=== PATIENT | male | born 1940 | race Caucasian/White ===

== ENCOUNTER 2017-02-19 20:10 | Observation (INO) | payer MEDICARE, BC ==
[2017-02-19] MEDS ORDERED: ASPIRIN 81 MG CHEWABLE TABLET PO ONE (20:34)
[2017-02-19] MEDS ORDERED: NITROGLYCERIN 0.4MG SL TABLET #25 BTL SL PRN (20:34)
[2017-02-19] MEDS ORDERED: DILTIAZEM 25MG/5ML VIAL IV ONE (20:37)
--- NOTE | 2017-02-19 20:43 | Emergency Department Record ---
History of Present Illness - General Chief complaint: ENT Stated complaint: TIGHTNESS IN THE THROAT AREA Time Seen by Provider: 02/19/17 20:20 Source: Patient Mode of Arrival: Ambulatory Limitations: No limitations - History of Present Illness Initial comments: pt developed tightness in chest and neck earlier this evening which continued. Onset/Timin -: Hour(s) Location: Throat Severity: Moderate Severity scale (1-10): 5 Consistency: Constant Improves with: None Worsens with: None Associated Symptoms: Other - Related Data Home Medications Medication Instructions Recorded Confirmed Last Taken Amlodipine Besylate [Norvasc] 10 mg PO DAILY 02/19/17 02/19/17 Unknown Aspirin [Aspirin EC] 81 mg PO DAILY 02/19/17 02/19/17 Unknown Calcium Carbonate/Vitamin D3 1 each PO DAILY 02/19/17 02/19/17 Unknown [Caltrate 600 Plus D3 Tablet] Clonidine HCl 0.2 mg PO TID 02/19/17 02/19/17 Unknown Doxazosin Mesylate [Cardura] 4 mg PO BID 02/19/17 02/19/17 Unknown Fish Oil/Dha/Epa [Fish Oil 1,200 1 each PO BID 02/19/17 02/19/17 Unknown mg Fish Oil] Lovastatin 20 mg PO DAILY 02/19/17 02/19/17 Unknown Multivitamin/Iron/Folic Acid 1 tab PO DAILY 02/19/17 02/19/17 Unknown [Centrum] Ubidecarenone [Ultra Coq10] 75 mg PO DAILY 02/19/17 02/19/17 Unknown Vit C/Vit E AC/Lut/Copper/Zinc 2 tab PO DAILY 02/19/17 02/19/17 Unknown [PreserVision Lutein Softgel] Allergies Allergy/AdvReac Type Severity Reaction Status Date / Time No Known Drug Allergies Allergy Verified 02/19/17 20:27 Travel Screening - Travel/Exposure Within Last 30 Days Have you traveled within the last 30 days?: No Review of Systems Reviewed: No additional complaints except as noted below Constitutional: Reports: As per HPI. Denies: Chills, Fever, Malaise, Night sweats, Weakness, Weight change Eyes: Reports: As per HPI. Denies: Eye discharge, Eye pain, Photophobia, Vision change ENT: Reports: As per HPI. Denies: Congestion, Dental pain, Ear pain, Epistaxis , Hearing loss, Throat pain Respiratory: Reports: As per HPI. Denies: Cough, Dyspnea, Hemoptysis, Stridor, Wheezes Cardiovascular: Reports: As per HPI. Denies: Arrhythmia, Chest pain, Dyspnea on exertion, Edema, Murmurs, Orthopnea, Palpitations, Paroxysmal nocturnal dyspnea, Rheumatic Fever, Syncope Endocrine: Reports: As per HPI. Denies: Fatigue, Heat or cold intolerance, Polydipsia, Polyuria Gastrointestinal: Reports: As per HPI. Denies: Abdominal pain, Constipation, Diarrhea, Hematemesis, Hematochezia, Melena, Nausea, Vomiting Genitourinary: Reports: As per HPI. Denies: Dysuria, Frequency, Hematuria, Incontinence, Retention, Testicular pain, Testicular mass, Urgency Musculoskeletal: Reports: As per HPI. Denies: Arthralgia, Back pain, Gout, Joint swelling, Myalgia, Neck pain Skin: Reports: As per HPI. Denies: Bruising, Change in color, Change in hair/ nails, Lesions, Pruritus, Rash Neurological: Reports: As per HPI. Denies: Abnormal gait, Confusion, Headache, Numbness, Paresthesias, Seizure, Tingling, Tremors, Vertigo, Weakness Psychiatric: Reports: As per HPI. Denies: Anxiety, Auditory hallucinations, Depression, Homicidal thoughts, Suicidal thoughts, Visual hallucinations Hematological/Lymphatic: Reports: As per HPI. Denies: Anemia, Blood Clots, Easy bleeding, Easy bruising, Swollen glands Past Medical History - SOCIAL HISTORY Smoking Status: Never smoker Alcohol Use: None Drug Use: None - RESPIRATORY Hx Respiratory Disorders: No - CARDIOVASCULAR Hx Cardio Disorders: Yes Hx Hypertension: Yes - NEURO Hx Neuro Disorders: No - GI Hx GI Disorders: No - Hx Genitourinary Disorders: No - ENDOCRINE Hx Endocrine Disorders: No - MUSCULOSKELETAL Hx Musculoskeletal Disorders: No - PSYCH Hx Psych Problems: No - HEMATOLOGY/ONCOLOGY Hx Hematology/Oncology Disorders: No Family Medical History Any Significant Family History?: Yes Hx Heart Disease: Mother Hx HTN: Father Physical Exam - General General Appearance: Alert, Oriented x3, Cooperative, Mild distress - Head Head exam: Normal inspection - Eye Eye exam: Normal appearance, PERRL, EOMI Pupils: Normal accommodation - ENT ENT exam: Normal exam, Mucous membranes moist, Normal external ear exam, Normal orophraynx, TM's normal bilaterally Ear exam: Normal external inspection. negative: External canal tenderness Nasal Exam: Normal inspection. negative: Discharge, Sinus tenderness Mouth exam: Normal external inspection, Tongue normal Teeth exam: Normal inspection. negative: Dental caries Throat exam: Normal inspection. negative: Tonsillar erythema, Tonsillar exudate - Neck Neck exam: Normal inspection, Full ROM. negative: Tenderness - Respiratory Respiratory exam: Normal lung sounds bilaterally. negative: Respiratory distress - Cardiovascular Cardiovascular Exam: Normal heart sounds, Irregular rhythm, Tachycardia - GI/Abdominal GI/Abdominal exam: Soft, Normal bowel sounds. negative: Tenderness - Rectal Rectal exam: Deferred - exam: Deferred - Extremities Extremities exam: Normal inspection, Full ROM, Normal capillary refill. negative: Tenderness - Back Back exam: Reports: Normal inspection, Full ROM. Denies: Muscle spasm, Rash noted, Tenderness - Neurological Neurological exam: Alert, Normal gait, Oriented X3, Reflexes normal - Psychiatric Psychiatric exam: Normal affect, Normal mood - Skin Skin exam: Dry, Intact, Normal color, Warm Course Vital Signs 02/19/17 20:28 Temperature 97.8 F Pulse Rate 101 H Respiratory 18 Rate Blood Pressure 149/110 Pulse Ox 98 - Reevaluation(s) Reevaluation #1: 02/19/17 22:20 pt converted after 2 hours Medical Decision Making - Lab Data Result diagrams: 02/19/17 20:40 02/19/17 20:40 Disposition Disposition: Admit Clinical Impression: Paroxysmal atrial fibrillation, Chest tightness Disposition: Still a Patient at [facility] Decision to Admit: Admit from ER Decision to Admit Date: 02/19/17 Decision to Admit Time: 22:22 Forms: Patient Portal Access Quality - Quality Measures Quality Measures: N/A - Blood Pressure Screening Does Patient Have Any of the Following: Active Dx of HTN Blood Pressure Classification: Hypertensive Reading Systolic Measurement: 149 Diastolic Measurement: 110 Screening for High Blood Pressure: Patient Exclusion, Hx of HTN [G9744]
[2017-02-19 20:46] LABS: BASO % 0.6 % (0-6); EOS % 5.1 % (0-6); GRAN % 52.6 % (47-80); HEMATOCRIT 41.5 % (42.0-52.0); HEMOGLOBIN 14.7 gm/dl (14.0-18.0); LYMPH % 33.2 % (16-45); MEAN CELL VOLUME 90.8 fl (81-97); MEAN CORPUSCULAR HEMOGLOBIN 32.2 pg (27-33); MEAN CORPUSCULAR HGB CONC 35.4 g/dl (32-36); MEAN PLATELET VOLUME 9.7 fl (7.4-10.4); MONO % 8.5 % (0-9); PLATELET COUNT 194 K/uL (130-400); RED BLOOD COUNT 4.57 M/uL (4.40-5.70); RED CELL DISTRIBUTION WIDTH 13.3 % (11.5-14.5); WHITE BLOOD COUNT W/O DIFF 5.3 K/uL (4.2-12.2)
[2017-02-19 21:05] LABS: BLOOD UREA NITROGEN 16 mg/dL (8-23); CREATINE PHOSPHOKINASE 102 U/L (39-308); CREATININE 0.9 mg/dL (0.7-1.2); EST GLOMERULAR FILTRATION RATE > 60 mL/min; GLUCOSE,RANDOM 140 mg/dL (74-109)
[2017-02-19 21:06] LABS: CKMB 2.8 ng/mL (<6.73)
[2017-02-19] MEDS ORDERED: ACETAMINOPHEN 500 MG TABLET PO PRN (22:54)
[2017-02-19] MEDS ORDERED: TEMAZEPAM 15 MG CAPSULE PO PRN (22:54)
[2017-02-19 23:34] LABS: INR 1.11; PARTIAL THROMBOPLASTIN TIME 30.1 SECONDS (24.5-39.1)
[2017-02-20 06:54] LABS: CKMB 2.2 ng/mL (<6.73)
--- NOTE | 2017-02-20 07:33 | CT ANGIOGRAM REPORT ---
EXAM: CTA OF THE CHEST HISTORY: DIFFICULTY BREATHING. TECHNIQUE: CTA of the chest was performed using pulmonary embolus protocol following IV administration of 70 ml of Omnipaque 350 contrast. Axial images were obtained with coronal and sagittal MIP reconstructions. Comparison: None. FINDINGS: The mediastinal vasculature enhances normally. There is no intraluminal filling defect to suggest pulmonary embolus. Cardiomegaly. Ectasia of the thoracic aorta. Coronary artery calcification. No mediastinal or hilar adenopathy. Limited evaluation of the upper abdomen shows partial visualization of a left renal cyst. Partial visualization of bilateral renal cysts. The osseous structures are grossly intact. Small hiatal hernia. No pneumothorax. The visualized airways are patent. The lungs are clear. IMPRESSION: NEGATIVE FOR AN ACUTE INTRATHORACIC PROCESS. CARDIOMEGALY. THE LUNGS ARE CLEAR. JOB NUMBER: [id number] MTDD
[2017-02-20] MEDS ORDERED: HEPARIN SODIUM/D5W 25,000 UNITS/500 ML BAG IV SCH (09:00)
[2017-02-20] MEDS ORDERED: HEPARIN SODIUM 1000 UNIT/1 ML 10ML VIAL IVP ONE (09:04)
[2017-02-20] MEDS ORDERED: CLONIDINE HCL 0.1 MG TABLET PO SCH (10:00)
[2017-02-20] MEDS ORDERED: ASPIRIN 325 MG TAB ENTERIC-COATED PO SCH (10:00)
[2017-02-20] MEDS ORDERED: AMLODIPINE BESYLATE 5MG TAB PO SCH (10:00)
[2017-02-20] MEDS ORDERED: DOXAZOSIN MESYLATE 4 MG PO SCH (10:00)
[2017-02-20] MEDS ORDERED: Non-Formulary MISC (Clonidine Hcl [Clonidine Hcl] 0.2 MG) PO SCH (10:00)
[2017-02-20] MEDS ORDERED: DOXAZOSIN MESYLATE 2 MG TABLET PO SCH (10:00)
[2017-02-20] MEDS ORDERED: SIMVASTATIN 10MG TABLET PO SCH (22:00)
== END 2017-02-20 11:16 | disposition short-term general hospital (02) ==
LOC: ER 20:10 → MEDSURG 22:42
PROVIDERS: ADMIT Emergency Medicine; ATTEND Emergency Medicine
DX: I48.0 Paroxysmal atrial fibrillation (principal); I20.0 Unstable angina; I10 Essential (primary) hypertension
CPT/HCPCS: 93041; 99285 ×2; 96374; 82550; 85025; 85730; 85610; 82553 ×2; 80048; 84484 ×2; 85379; 71275; 93005; 93010; G0378 ×2; Q9967; 99236

== ENCOUNTER 2018-03-17 12:57 | Emergency (ER) | payer MEDICARE, BC ==
[2018-03-17] MEDS ORDERED: 0.9 % SODIUM CHLORIDE 1000ML 1,000 ML IV PRN (13:16)
[2018-03-17] MEDS ORDERED: DILTIAZEM 25MG/5ML VIAL IV ONE (13:17)
--- NOTE | 2018-03-17 13:22 | Emergency Department Record ---
History of Present Illness - General Chief Complaint: Arrythmia/Palpitations Stated Complaint: AFIB Time Seen by Provider: 03/17/18 13:03 Source: Patient Mode of Arrival: Ambulatory Limitations: No limitations - History of Present Illness Initial Comments: Pt with hx A fib in recent past. Today felt a "little BENAVIDEZ" and that his heart was irregular. No CP or SOFIA, no light headed or syncope. No recent illness, fever, cough, no recent change in medications. MD Complaint: Atrial fibrillation Onset/Timin -: Hour(s) Arrythmia History: Atrial fibrillation, On anti-coagulants Associated Symptoms: Chest pain - Related Data Home Medications Medication Instructions Recorded Confirmed Last Taken Apixaban [Eliquis] 2.5 mg PO BID 03/17/18 03/17/18 03/17/18 Valsartan/Hydrochlorothiazide 1 each PO QAM 03/17/18 03/17/18 03/17/18 [Diovan Hct 160-12.5 mg Tab] Allergies Allergy/AdvReac Type Severity Reaction Status Date / Time No Known Drug Allergies Allergy Verified 03/17/18 13:05 Travel Screening - Travel/Exposure Within Last 30 Days Have you traveled within the last 30 days?: No Review of Systems Constitutional: Denies: Chills, Fever, Weakness Eyes: Denies: Eye discharge, Photophobia ENT: Denies: Congestion, Throat pain Respiratory: Denies: Cough, Dyspnea Cardiovascular: Reports: As per HPI, Arrhythmia. Denies: Chest pain, Dyspnea on exertion, Syncope Endocrine: Denies: Fatigue, Polyuria Gastrointestinal: Denies: Abdominal pain, Constipation, Nausea, Vomiting Genitourinary: Denies: Dysuria Musculoskeletal: Denies: Arthralgia Skin: Denies: Bruising Neurological: Reports: Headache. Denies: Abnormal gait, Numbness, Seizure, Tingling, Weakness Psychiatric: Denies: Anxiety, Homicidal thoughts, Suicidal thoughts Hematological/Lymphatic: Denies: Anemia Past Medical History - SOCIAL HISTORY Smoking Status: Never smoker Alcohol Use: None Drug Use: None - RESPIRATORY Hx Respiratory Disorders: No - CARDIOVASCULAR Hx Cardio Disorders: Yes Hx Hypertension: Yes Hx Irregular Heartbeat: Yes (Afib) Comment:: high cholesterol - NEURO Hx Neuro Disorders: No - GI Hx GI Disorders: No - Hx Genitourinary Disorders: No - ENDOCRINE Hx Endocrine Disorders: No - MUSCULOSKELETAL Hx Musculoskeletal Disorders: No - PSYCH Hx Psych Problems: No - HEMATOLOGY/ONCOLOGY Hx Hematology/Oncology Disorders: No Family Medical History Any Significant Family History?: Yes Hx Heart Disease: Mother Hx HTN: Father Physical Exam - General General Appearance: Alert, Oriented x3, Cooperative, No acute distress - Head Head exam: Atraumatic - Eye Eye exam: Normal appearance, PERRL, EOMI - ENT ENT exam: Normal exam, Mucous membranes moist, Normal external ear exam, Normal orophraynx, TM's normal bilaterally - Neck Neck exam: Normal inspection, Full ROM. negative: Tenderness - Respiratory Respiratory exam: Normal lung sounds bilaterally. negative: Respiratory distress, Wheezes - Cardiovascular Cardiovascular Exam: Irregular rhythm (90-125 on monitor) Peripheral Pulses: 2+: Radial (R), Radial (L) - GI/Abdominal GI/Abdominal exam: Soft, Normal bowel sounds. negative: Hypoactive bowel sounds , Tenderness - Extremities Extremities exam: Normal inspection - Back Back exam: Reports: Normal inspection. Denies: Paraspinal tenderness - Neurological Neurological exam: Alert, Normal gait, Oriented X3 - Psychiatric Psychiatric exam: Normal affect, Normal mood - Skin Skin exam: Normal color. negative: Rash Course Vital Signs 03/17/18 13:05 Temperature 97.5 F L Pulse Rate 102 H Respiratory 24 Rate Blood Pressure 128/72 Pulse Ox 99 - Reevaluation(s) Reevaluation #1: 03/17/18 13:45 Pt converted to SR prior to treatment in the ED. We will monitor and await labs. Harshil SALCIDO. Reevaluation #2: 03/17/18 14:[address] Olsen PMD - course reviewed. Agrees with plan. No change in care plan. Reevaluation #3: 03/17/18 14:23 Pt remains asymptomatic and in sinus at 58. Home with son. Procedures - EKG Initial Date: 03/17/18 Time: 13:19 EKG: Abnormal EKG (A fib rate 85-125) - EKG Repeat Repeat #1 EKG Repeat: Normal EKG (SPONTANEOUSLY CONVERTED to Sinus at 62) Medical Decision Making - Management Options MDM Management: No Additional Work-up Planned - Data Complexity MDM Data: Labs Ordered and/or Reviewed, X-Ray Ordered and/or Reviewed, EKG Ordered and/or Reviewed - Lab Data Result diagrams: 03/17/18 13:25 11/13/18 13:25 - EKG Data -: EKG Interpreted by Me EKG: Abnormal EKG - Radiology Data Radiology results: Report reviewed, Image reviewed Disposition Disposition: Discharge Clinical Impression: Atrial fib/flutter, transient Disposition: Home, Self-Care Condition: (2) Stable Additional Instructions: Continue your current medications as normal. Call to see Dr. Olsen in 2-3 days. Return to the ED as needed. Forms: Patient Portal Access Quality - Quality Measures Quality Measures: N/A - Blood Pressure Screening Does Patient Have Any of the Following: No Blood Pressure Classification: Pre-Hypertensive BP Reading Systolic Measurement: 136 Diastolic Measurement: 76 Screening for High Blood Pressure: < Pre-Hypertensive BP, F/U Documented > [ [id number]] Pre-Hypertensive Follow-up Interventions: Follow-up with rescreen every year.
[2018-03-17 13:33] LABS: BASO % 0.5 % (0-6); EOS % 3.2 % (0-6); GRAN % 55.8 % (47-80); HEMATOCRIT 43.3 % (42.0-52.0); HEMOGLOBIN 14.8 gm/dl (14.0-18.0); LYMPH % 29.9 % (16-45); MEAN CELL VOLUME 93.5 fl (81-97); MEAN CORPUSCULAR HGB CONC 34.2 g/dl (32-36); MEAN PLATELET VOLUME 9.4 fl (7.4-10.4); MONO % 10.6 % (0-9); PLATELET COUNT 207 K/uL (130-400); RED BLOOD COUNT 4.63 M/uL (4.40-5.70); RED CELL DISTRIBUTION WIDTH 13.6 % (11.5-14.5); WHITE BLOOD COUNT W/O DIFF 5.7 K/uL (4.2-12.2)
[2018-03-17 13:43] LABS: BLOOD UREA NITROGEN 14 mg/dL (8-23); CREATININE 0.9 mg/dL (0.7-1.2); EST GLOMERULAR FILTRATION RATE > 60 mL/min
[2018-03-17 13:46] LABS: GLUCOSE,RANDOM 93 mg/dL (74-109)
--- NOTE | 2018-03-18 08:34 | RADIOLOGY REPORT ---
EXAM: PORTABLE CHEST HISTORY: DIFFICULTY BREATHING. TECHNIQUE: A portable AP upright view of the chest was performed. FINDINGS: The heart size is normal. No pulmonary vascular congestion. No infiltrate or pleural effusion. The osseous structures are normal. IMPRESSION: NO ACUTE PULMONARY DISEASE PROCESS. JOB NUMBER: [id number] MTDD
== END 2018-03-17 14:47 | disposition home or self-care (01) ==
LOC: ER 12:57
DX: I48.91 Unspecified atrial fibrillation (principal); R06.00 Dyspnea, unspecified; R51 Headache; R07.89 Other chest pain; I10 Essential (primary) hypertension; Z79.01 Long term (current) use of anticoagulants
CPT/HCPCS: 71045; 80048; 85025; 93005; 93010; 99284